=== PATIENT | female | born 1995 | race Caucasian/White ===

== ENCOUNTER 2016-11-19 12:11 | Emergency (ER) | payer MEDICAID, OTHER, SELFPAY ==
[2016-11-19 12:55] LABS: #Basophils 0.1 thou/uL (0.0-0.2); #Eosinphils 0.1 thou/uL (0.0-0.7); #Lymphocytes 2.7 thou/uL (1.20-3.40); #Monocytes 0.9 thou/uL (0.11-0.59); #Neutrophils 8.5 thou/uL (1.40-6.50); %Basophils 0.6 % (0.0-1.0); %Eosinophils 0.8 % (0.0-10.0); %Lymphocytes 22.3 % (21.0-51.0); %Monocytes 7.3 % (0.0-10.0); Hemoglobin 10.8 g/dL (12.0-16.0); Mean Corpuscular HGB CONC 34.2 g/dL (32.0-36.0); Mean Corpuscular Hemoglobin 30.2 pg (27.0-31.0); Mean Corpuscular Volume 88.2 fl (81.0-99.0); Mean Platelet Volume 7.4 fL (7.4-10.4); Platelet Count 282 thou/uL (130-400); RBC Distribution Width 11.6 % (11.5-14.5); Red Blood Cell (RBC) Count 3.58 mill/uL (4.20-5.40); White Blood Cell (WBC) Count 12.3 thou/uL (4.8-10.8)
[2016-11-19 13:10] LABS: ALT (SGPT) 16 U/L (0-55); AST (SGOT) 18 U/L (5-34); Albumin 3.5 g/dL (3.5-5.0); Alkaline Phosphatase 141 U/L (40-150); Anion Gap 17 mmol/L (10-20); BUN (Urea Nitrogen) 8 mg/dL (7.0-18.7); Bilirubin, Total 0.4 mg/dL (0.2-1.2); CK (CPK) 34 U/L (29-168); Calc. Creatinine Clearance 0 mL/min (70-130); Calcium 9.2 mg/dL (7.8-10.44); Carbon Dioxide 19 mmol/L (22-29); Chloride 104 mmol/L (98-107); Estimated GFR-MDRD Greater than 90; Globulin 3.2 g/dL (2.4-3.5); Glucose 83 mg/dL (70-105); Potassium 3.7 mmol/L (3.5-5.1); Protein, Total 6.7 g/dL (6.0-8.3); Sodium 136 mmol/L (136-145)
[2016-11-19 13:16] LABS: Bilirubin Negative (Negative); Blood, Urine Negative (Negative); Clarity Cloudy (Clear); Glucose, Urine (Dipstick) Negative (Negative); Leukocyte Trace (Negative); Nitrite Negative (Negative); Protein, Urine (Dipstick) Trace mg/dL (Neg-Trace); RBC/HPF 0-3 HPF (0-3); Urobilinogen 0.2 mg/dL (0.2-1.0); pH, Urine 8.5 (5.0-9.0)
[2016-11-19 13:16] LABS: CKMB 1.1 ng/mL (0-6.6); Troponin I Less than 0.010 ng/mL (< 0.028)
[2016-11-19 13:17] LABS: Bacteria/HPF 3+ HPF (None Seen); Crystals/HPF 3+ AMORPH PHOS HPF (Negative); Renal Epithelial 0-3 HPF (0-3); Transitional Epithelial 0-3 HPF (0-3); WBC/HPF 21-50 HPF (0-3); Yeast-All Forms 1+ HPF (None Seen)
[2016-11-19] MEDS ORDERED: Nitrofurantoin Monohyd/M-Cryst 100 MG CAP ONE (13:36)
[2016-11-19] MEDS ORDERED: Ciprofloxacin 500 MG TAB ONE (13:57)
--- NOTE | 2016-11-19 14:06 | ERRECORD ---
[facility] EMERGENCY RECORD HPI CHEST PAIN (12:50 LLDO) CHIEF COMPLAINT: Patient presents for evaluation of chest pain, ongoing, Denies automated implantable cardioverter-defibrillator event, Patient presents for evaluation of pt about 28 weeks and having no problems so far. this morning began having a burning substernal sensation up to about 3.5/10. started when she woke, about 1100 today. no n/v/d or sob or diaphoresis. no radiation. sorse with deep breath but a bit better with rubbing chest. pain extends some into epigastrum. never had this before. pain now about a 2/10. HISTORIAN: History provided by patient, History provided by patient's family. LOCATION: Symptoms are localized. QUALITY: Pain is dull in nature, described as aching, described as BURNING. SEVERITY: Maximum severity of symptoms mild, Currently symptoms are mild. TIME COURSE: Sudden onset of symptoms, Symptoms are improving, are constant. ASSOCIATED WITH: No associated symptoms, "tingling in legs" is only when she's been on her feet too long. EXACERBATED BY: Patient's condition exacerbated by nothing. RELIEVED BY: Patient's condition relieved by time. RISK FACTORS: No coronary artery disease risk factors, No thoracic aortic dissection risk factors, Pulmonary embolism risk factors, include . HEART SCORE: Patients history is Slightly Suspicious (0), Patients ECG is normal (0), Patients age is equal to or less than 45 (0), Patient has no risk factors known (0), Total 0. WELLS CRITERIA FOR PE: Total 0. ROS CONSTITUTIONAL: Historian reports fatigue. (13:22 LLDO) EYES: Negative eye review of systems, Historian denies eye pain, denies eye redness, denies eye discharge. (13:47 LLDO) ENT: Negative ears, nose, throat review of systems, Historian denies epistaxis, denies rhinorrhea, denies sinus pain, denies sore throat. (13:47 LLDO) CARDIOVASCULAR: Historian reports chest pain, no radiation, Historian denies diaphoresis, denies dyspnea on exertion. IN HPI. (13:22 LLDO) RESPIRATORY: Negative respiratory review of systems, Historian denies cough, denies cyanosis, denies shortness of breath, denies sputum, denies stridor, denies wheezing. (13:22 LLDO) GI: Negative gastrointestinal review of systems. (13:22 LLDO) GENITOURINARY FEMALE: Historian reports . (13:22 LLDO) MUSCULOSKELETAL: Negative musculoskeletal review of systems, Historian denies arthralgias, denies back pain, denies injury, denies &a-1R&a+25V*p+0X*j1623V*c202B*c15G*c2P*p-0X&a-25V&a+1R Name: Catherine Jaimes : 1995 F21 MedRec: [id number] AcctNum: [id number] Prepared: Caitie Nov 19, 2016 14:14 by Interface Page 1 of 4 pMD [facility] EMERGENCY RECORD myalgias, denies neck pain. (13:47 LLDO) SKIN: Negative skin review of systems, Historian denies cellulitis, denies rash, denies skin changes, denies skin lesions. (13:47 LLDO) NEUROLOGIC: Negative neurologic review of systems, Historian denies confusion, denies dizziness, denies focal weakness, denies mental status changes. (13:47 LLDO) HEMO/LYMPHATIC: Normal hematologic/lymphatic system review, Historian denies abnormal blood clotting, denies gum bleeding, denies petechiae. (13:47 LLDO) ALLERGIC/IMMUNOLOGIC: Normal allergy/immunologic system review, Historian denies eczema, denies environmental allergies, denies food allergies. (13:47 LLDO) PSYCHIATRIC: Negative psychiatric review of systems, Historian denies alcohol abuse, denies anxiety, denies depression, denies drug abuse, denies hallucinations. (13:47 LLDO) NOTES: All systems reviewed, negative except as described above. (13:22 LLDO) All systems reviewed, negative except as described above. (13:22 LLDO) All systems reviewed, negative except as described above. (13:31 LLDO) PAST MEDICAL HISTORY MEDICAL HISTORY: Flu vaccine not up to date, Tetanus not up to date, Pneumococcal vaccine not up to date, REOCCURING UTIS. (12:19 CJEF) FEMALE SURGICAL HISTORY: WISDOM TEETH. (12:19 CJEF) PSYCHIATRIC HISTORY: Psychiatric history includes, anxiety, depression, Psychiatric history includes previous emergency department psychiatric evaluations, Date of last emergency department evaluation: 01/08/16, Psychiatric history includes history of suicide attempts, by OVERDOSE. (12:19 CJEF) SOCIAL HISTORY: Patient drinks socially, Patient currently uses drugs, abuses marijuana, Daily drug use, Last used: 02/04/2016, Patient currently uses tobacco, smokes cigarettes, chews tobacco, daily, Patient smokes 1/2 packs per day. (12:19 CJEF) NOTES: Nursing records reviewed, Agree with nursing records, Medication list reviewed. (13:46 LLDO) KNOWN ALLERGIES Bactrim DS: Reaction: Nausea Sulfa (Sulfonamide Antibiotics) CURRENT MEDICATIONS (12:17 CJEF) PRENATALS VITAL SIGNS VITAL SIGNS: BP: 104/71, Pulse: 106, Resp: 18, O2 sat: 99 on Room Air, Time: 11/19/2016 12:15. (12:15 CJEF) Temp: 98.3 (Tympanic), Pain: 2, Time: 11/19/2016 12:22. (12:22 CJEF) BP: 104/71, Pulse: 104, Resp: 13, Pain: 2, O2 sat: 99 on Room Air, Time: &a-1R&a+25V*p+0X*c4010F*c202B*c15G*c2P*p-0X&a-25V&a+1R Name: Catherine Jaimes : 1995 F21 MedRec: [id number] AcctNum: [id number] Prepared: Caitie Nov 19, 2016 14:14 by Interface Page 2 of 4 pMD [facility] EMERGENCY RECORD 11/19/2016 12:26. (12:26 JPER) BP: 104/69, Pulse: 91, Resp: 17, Pain: 2, O2 sat: 98 on Room Air, Time: 11/19/2016 13:17. (13:17 CJEF) BP: 120/74, Pulse: 101, Resp: 15, Temp: 98.4 (Oral), Pain: 2, O2 sat: 100 on Room Air, Time: 11/19/2016 13:59. (13:59 CJEF) PHYSICAL EXAM CONSTITUTIONAL: Vital Signs Reviewed, Patient afebrile, Pulse normal, Blood pressure normal bilaterally, Respiratory rate normal, Patient appears non toxic, Patient appears, in mild pain distress, Patient alert and oriented to person, place and time, Nursing notes reviewed. (13:44 LLDO) HEAD: Head exam normal, Head exam included findings of head atraumatic, normocephalic. (13:47 LLDO) EYES: Eye exam normal, Eye exam included findings of eyelids normal to inspection, Pupils equally round and reactive to light, Extraocular muscles intact. (13:47 LLDO) ENT: ENT exam normal, Ear exam normal, Nose exam normal. (13:47 LLDO) NECK: Neck exam normal, Neck exam included findings of normal range of motion, Trachea midline, no meningeal signs, no tenderness. (13:47 LLDO) RESPIRATORY CHEST: Respiratory exam included findings of, Breath sounds clear, Chest exam included findings of chest movement symmetrical, Chest expansion equal, Tenderness, mild, to the sternum, Palpation of chest reproduces symptoms. (13:44 LLDO) CARDIOVASCULAR: Cardiovascular assessment normal, Cardiovascular exam included findings of heart rate regular rate and rhythm, Heart sounds normal. (13:47 LLDO) ABDOMEN FEMALE: Abdominal exam included findings of abdomen tender, to the epigastric region, mild intensity, Bowel sounds normal, fht 156. uterus size appropriate for dates. (13:44 LLDO) BACK: Back exam normal, Back exam included findings of normal inspection, range of motion normal. (13:47 LLDO) UPPER EXTREMITY: Upper extremity exam normal, Upper extremity exam included findings of inspection normal, Range of motion normal. (13:47 LLDO) LOWER EXTREMITY: Lower extremity exam normal, Lower extremity exam included findings of inspection normal, Range of motion normal. (13:47 LLDO) NEURO: Neuro exam normal, Neuro exam findings include patient oriented to person, place and time, Speech normal, [place] coma scale 15. (13:47 LLDO) SKIN: Skin exam normal, Skin exam included findings of skin warm, dry, and normal in color, no rash. (13:47 LLDO) PSYCHIATRIC: Psychiatric exam normal, Psychiatric exam included findings of patient oriented to person place and time, Normal affect. (13:47 LLDO) &a-1R&a+25V*p+0X*w0277F*c202B*c15G*c2P*p-0X&a-25V&a+1R Name: Catherine Jaimes : 1995 F21 MedRec: [id number] AcctNum: [id number] Prepared: Caitie Nov 19, 2016 14:14 by Interface Page 3 of 4 pMD [facility] EMERGENCY RECORD MEDICATION ADMINISTRATION SUMMARY Drug Name: Macrobid, Dose Ordered: 100 mg, Route: Oral, Status: Canceled, Time: 13:53 11/19/2016, Drug Name: Cipro tablet, Dose Ordered: 500 mg, Route: Oral, Status: Given, Time: 13:58 11/19/2016, Detailed record available in Medication Service section. PROBLEM LIST No recorded problems DIAGNOSIS (13:58 LLDO) FINAL: PRIMARY: Esophageal Reflux, ADDITIONAL: UTI SITE NOT SPECIFIED. PRESCRIPTION (13:59 LLDO) Cipro tablet: TABLET : 500 mg : ORAL : Quantity: 1 Unit: tab(s) Route: ORAL Schedule: 2 times a day Dispense: 20 Unit: tab(s) May substitute. Refills: No Refills . NOTES: No Refills. DISPOSITION PATIENT: Disposition Type: Discharge, Disposition: *Discharge Home. (13:58 LLDO) Patient left the department. (14:06 [facility]) [place]: CRISSY=VANESSA Parikh, Poppy JPER=VANESSA Gross, Elif LLDO=MD Nato, Kam &a-1R&a+25V*p+0X*h5696R*c202B*c15G*c2P*p-0X&a-25V&a+1R Name: Catherine Jaimes : 1995 F21 MedRec: [id number] AcctNum: [id number] Prepared: Caitie Nov 19, 2016 14:14 by Interface Page 4 of 4 pMD MTDD
--- NOTE | 2016-11-19 14:09 | PICIS ---
[facility] EMERGENCY RECORD TRIAGE (12:17 CJEF) TRIAGE NOTES: PT REPORTS CP THAT STARTED WHEN SHE WOKE UP AT APPROX 11 THIS MORNING. PT STATES THAT SHE IS 30 WEEKS AND THAT HER DOCTOR TOLD HER TO COME TO ER OF SHE HAS ANY CHEST PAIN. PT REPORTS TINGLING IN HER BILATERAL LEGS. PT REPORTS HX OF ANXIETY. (12:17 CJEF) PATIENT: NAME: Catheirne Jaimes, AGE: 21, GENDER: female, : Mon 1995, TIME OF GREET: Sun Nov 19, 2016 12:12, PREFERRED LANGUAGE: Indonesian, ETHNICITY: Not or , ECODE BILLING MAP: [facility] ER, SSN: [id number], Zip Code: [address], KG WEIGHT: 57.15, PHONE: , , , PERSON ID: [id number], PCP: , Clinic. (12:17 CJEF) COMPLAINT: HIGH RISK COMPLAINT: CHEST PAIN. (12:17 CJEF) ADMISSION: URGENCY: 2 Emergent, ADMISSION SOURCE: Home, TRANSPORT: Walk-in, BED: ED -01. (12:17 CJEF) ASSESSMENT: Assessment: CP AND TINGLING LEGS. (12:19 CJEF) PAIN: Patient complains of pain described as, Location CHEST. (12:19 CJEF) IMMUNIZATIONS: Flu vaccine not up to date, Tetanus not up to date, Pneumococcal vaccine not up to date. (12:19 CJEF) SIRS SCORING: Heart Rate 55-109 (0), Temp range 96.8-101.1 (0), respiratory rate 12-24 (0), Mental Status altered: no (0), Infection or Suspected Infection: No. (12:19 CJEF) TRIAGE SCREENING: Patient denies suicidal ideation, Patient denies presence of domestic violence. (12:19 CJEF) LMP: Last menstrual period: 05/03/2016, Estimated conception 05/17/2016, Estimated due date 02/07/2017, Estimated age 28 weeks, 4 days, , P: 0, AB: 1. (12:19 CJEF) PROVIDERS: TRIAGE NURSE: Poppy Parikh RN. (12:17 CJEF) VITAL SIGNS: BP 104/71, Pulse 106, Resp 18, O2 Sat 99, on Room Air, Time 11/19/2016 12:15. (12:15 CJEF) PREVIOUS VISIT ALLERGIES: Sulfa (Sulfonamide Antibiotics). (12:17 CJEF) Sulfa (Sulfonamide Antibiotics). (12:19 CJEF) KNOWN ALLERGIES Bactrim DS: Reaction: Nausea Sulfa (Sulfonamide Antibiotics) CURRENT MEDICATIONS (12:17 CJEF) PRENATALS VITAL SIGNS VITAL SIGNS: BP: 104/71, Pulse: 106, Resp: 18, O2 sat: 99 on Room Air, Time: 11/19/2016 12:15. (12:15 CJEF) Temp: 98.3 (Tympanic), Pain: 2, Time: 11/19/2016 12:22. (12:22 CJEF) BP: 104/71, Pulse: 104, Resp: 13, Pain: 2, O2 sat: 99 on Room Air, Time: 11/19/2016 12:26. (12:26 JPER) &a-1R&a+25V*p+0X*s3694F*c202B*c15G*c2P*p-0X&a-25V&a+1R Name: Catherine Jaimes : 1995 F21 MedRec: [id number] AcctNum: [id number] Prepared: Caitie Nov 19, 2016 14:19 by Interface Page 1 of 12 pMD [facility] EMERGENCY RECORD BP: 104/69, Pulse: 91, Resp: 17, Pain: 2, O2 sat: 98 on Room Air, Time: 11/19/2016 13:17. (13:17 CJEF) BP: 120/74, Pulse: 101, Resp: 15, Temp: 98.4 (Oral), Pain: 2, O2 sat: 100 on Room Air, Time: 11/19/2016 13:59. (13:59 CJEF) NURSING ASSESSMENT: CARDIOVASCULAR (12:19 CJEF) CONSTITUTIONAL: Complex assessment performed, Patient arrives ambulatory, Gait steady, History obtained from patient, Patient appears, anxious, Patient cooperative, Patient alert, Oriented to person, place and time, Skin warm, Skin dry, Skin normal in color, Mucous membranes pink, Mucous membranes moist, Patient is well-groomed, PT REPORTS CP THAT STARTED WHEN SHE WOKE UP AT APPROX 11 THIS MORNING. PT STATES THAT SHE IS 30 WEEKS AND THAT HER DOCTOR TOLD HER TO COME TO ER OF SHE HAS ANY CHEST PAIN. PT REPORTS TINGLING IN HER BILATERAL LEGS. PT REPORTS HX OF ANXIETY. PAIN: aching pain, to the left chest. CARDIOVASCULAR: Cardiovascular assessment findings include heart rate, tachycardic, Heart rhythm normal sinus, Heart sounds normal, no associated dyspnea, no associated dizziness, no associated palpitations. RESPIRATORY/CHEST: Breath sounds clear, Respiratory assessment findings include respiratory effort easy, Respirations regular, Conversing normally, Neck and chest exam findings include trachea midline, Chest expansion equal, Chest movement symmetrical, no signs of distress, no associated cough noted, no associated fever. NOTES: Patient tolerated procedure well. SAFETY: Side rails up, Cart/Stretcher in lowest position, Family at bedside, Call light within reach, Hospital ID band on. NURSING ASSESSMENT: FALL RISK (12:20 CJEF) FALL RISK: Total score 0, No risk for fall. HENDRICH II FALL RISK: Able to rise in a single movement; no loss of balance with steps(0), Total score 0, Score less than 5. Patient not high risk for falls. NURSING ASSESSMENT: SKIN (12:20 CJEF) SKIN: Skin assessment findings include skin warm, Skin dry, Skin normal in color. MATTI SCALE: (4) Sensory perception has no impairment, (4) Skin is rarely moist, (4) Patient walks frequently, (4) No mobility limitations, (3) Adequate nutrition, (3) Patient has no apparent problem moving, Matti Risk Total: 22. NOTES: Patient tolerated procedure well. SAFETY: Side rails up, Cart/Stretcher in lowest position, Family at bedside, Call light within reach, Hospital ID band on. NURSING PROCEDURE: CAMP HEAD COUNSELOR (12:17 CJEF) PATIENT IDENTIFIER: Patient actively involved in identification process, Patient's identity verified by patient stating name, &a-1R&a+25V*p+0X*y2248L*c202B*c15G*c2P*p-0X&a-25V&a+1R Name: Catherine Jaimes : 1995 F21 MedRec: [id number] AcctNum: [id number] Prepared: Caitie Nov 19, 2016 14:19 by Interface Page 2 of 12 pMD [facility] EMERGENCY RECORD Patient's identity verified by patient stating date. CAMP HEAD COUNSELOR: Cardiac monitoring indicated for complaint of chest pain, Patient placed on shelter monitor, Heart rate: 106, showing sinus tachycardia, Patient placed on non-invasive blood pressure monitor, Patient placed on continuous pulse oximetry, Adult/pediatric oxisensor applied. FOLLOW-UP: After procedure, alarms set and on, After procedure, patient tolerating monitoring. NOTES: Patient tolerated procedure well. SAFETY: Side rails up, Cart/Stretcher in lowest position, Family at bedside, Call light within reach, Hospital ID band on. NURSING PROCEDURE: DISCHARGE NOTE (14:05 CJEF) DISCHARGE: Patient discharged to home, ambulating without assistance, driving self, accompanied by friend, Summary of Care printed/ provided, Patient requested and was provided an electronic copy of Discharge Instructions, Transition record given to patient, Discharge instructions given to patient, Simple or moderate discharge teaching performed, Prescriptions given and instructions on side effects given, Medication reconciliation form given, Above person(s) verbalized understanding of discharge instructions and follow-up care, Patient treated and evaluated by physician. BELONGINGS: Belongings remain with patient. NOTES: Patient tolerated procedure well. SAFETY: Side rails up, Cart/Stretcher in lowest position, Family at bedside, Call light within reach, Hospital ID band on. NURSING PROCEDURE: EKG CHART PATIENT IDENTIFIER: Patient actively involved in identification process, Patient's identity verified by patient stating name, Patient's identity verified by patient stating date. (12:22 CJEF) Patient's identity verified by patient stating name, Patient's identity verified by hospital ID bracelet. (12:39 JPER) EKG: EKG indicated for complaint of chest pain, 12 lead EKG performed on the left chest, done by ELIF MENDEZ, first EKG. (12:22 CJEF) EKG indicated for complaint of chest pain, 12 lead EKG performed on the left chest, done by SUNNY MENDEZ, first EKG. (12:39 JPER) FOLLOW-UP: After procedure, EKG for interpretation given to Dr. DUTTON. (12:22 CJEF) After procedure, EKG for interpretation given to Dr. DUTTON. (12:39 JPER) NOTES: Patient tolerated procedure well. (12:22 CJEF) Emotional support needed and given. (12:39 JPER) SAFETY: Side rails up, Cart/Stretcher in lowest position, Family at bedside, Call light within reach, Hospital ID band on. (12:22 CJEF) NURSING PROCEDURE: HEART TONES (12:38 JPER) PATIENT IDENTIFIER: Patient's identity verified by patient stating name, Patient's identity verified by hospital ID murphy. &a-1R&a+25V*p+0X*s1155Y*c202B*c15G*c2P*p-0X&a-25V&a+1R Name: Catherine Jaimes : 1995 F21 MedRec: [id number] AcctNum: [id number] Prepared: Caitie Nov 19, 2016 14:19 by Interface Page 3 of 12 pMD [facility] EMERGENCY RECORD HEART TONES: heart toned obtained with doppler, by SUNNY MENDEZ, heart rate 156. FOLLOW-UP: After procedure, results given to Dr. DUTTON. NOTES: Emotional support needed and given. NURSING PROCEDURE: IV PATIENT IDENITIFIER: Patient actively involved in identification process, Patient's identity verified by patient stating name, Patient's identity verified by patient stating date. (12:43 CJEF) IV SITE 1: IV therapy indicated for hydration, IV therapy indicated for medication administration, IV established, to the left antecubital, using an 18 gauge catheter, in one attempt, IV site prepped with CHLORAPREP, Saline lock established, Flushed with normal saline (mls): 10, Labs drawn at time of placement, labeled in the presence of the patient and sent to lab. (12:43 CJEF) FOLLOW-UP SITE 1: After procedure, sterile transparent dressing applied. (12:43 CJEF) After procedure, 2x2 dressing applied, IV discontinued, due to patient being discharged, catheter intact. (14:00 CJEF) NOTES: Patient tolerated procedure well. (12:43 CJEF) SAFETY: Side rails up, Cart/Stretcher in lowest position, Family at bedside, Call light within reach, Hospital ID band on. (12:43 CJEF) NURSING PROCEDURE: NURSE NOTES NURSES NOTES: Patient in no apparent distress, Patient resting quietly, Notes: PT RESTING IN BED QUIETLY WITH FRIEND AT BEDSIDE. NO DISTRESS NOTED. (13:17 CJEF) Patient in no apparent distress, Patient resting quietly, Notes: PT WAS ABOUT TO BE ADMINISTERD ORDERED MACROBID, THOUGH SHE NOW REPORTS THAT SHE IS ALLERGIC TO MACROBID,. (13:39 CJEF) NURSING PROCEDURE: URINE COLLECTION (12:53 CJ) PATIENT IDENTIFIER: Patient actively involved in identification process, Patient's identity verified by patient stating name, Patient's identity verified by patient stating date. URINE COLLECTION FEMALE: Urine collected by mid-stream clean catch, urine yellow in color, and cloudy. NOTES: Patient tolerated procedure well. SAFETY: Side rails up, Cart/Stretcher in lowest position, Family at bedside, Call light within reach, Hospital ID band on. ORDER DETAILS Order Name: B type Natriuretic Peptide, Status: Active, Time: 12:30 11/19/2016, User: TIFFANY, - Ordered for: MD Dutton Lloyd, - Entered by: MD Dutton Lloyd - Caitie Nov 19, 2016 12:30, - Quantity: 1, &a-1R&a+25V*p+0X*s8973B*c202B*c15G*c2P*p-0X&a-25V&a+1R Name: Catherine Jaimes : 1995 F21 MedRec: [id number] AcctNum: [id number] Prepared: Caitie Nov 19, 2016 14:19 by Interface Page 4 of 12 [facility] EMERGENCY RECORD Order Name: CAMP HEAD COUNSELOR ED, Status: Done, Time: 12:39 11/19/2016, User: JESSICA, - Ordered for: MD Dutton Lloyd, - Entered by: MD Dutton Lloyd - Caitie Nov 19, 2016 12:30, - Quantity: 1, Order Name: Cardiac Profile w/CKMB & Troponin - I, Status: Active, Time: 12:30 11/19/2016, User: TIFFANY, - Ordered for: MD Dutton Lloyd, - Entered by: MD Dutton Lloyd - Caitie Nov 19, 2016 12:30, - Quantity: 1, Order Name: CBC with Differential, Status: Active, Time: 12:30 11/19/2016, User: TIFFANY, - Ordered for: MD Dutton Lloyd, - Entered by: MD Dutton Lloyd - Sun Nov 19, 2016 12:30, - Quantity: 1, Order Name: CK (CPK), Status: Active, Time: 12:30 11/19/2016, User: LLDO, - Ordered for: MD Dutton Lloyd, - Entered by: MD Dutton Lloyd - Sun Nov 19, 2016 12:30, - Quantity: 1, Order Name: Comprehensive Metabolic Panel, Status: Active, Time: 12:30 11/19/2016, User: LLDO, - Ordered for: MD Dutton Lloyd, - Entered by: MD Dutton Lloyd - Sun Nov 19, 2016 12:30, - Quantity: 1, Order Name: Culture, Urine, Status: Active, Time: 12:31 11/19/2016, User: LLDO, - Ordered for: MD Dutton Lloyd, - Entered by: MD Dutton Lloyd - Sun Nov 19, 2016 12:31, - Quantity: 1, Order Name: EKG 12 Lead in Emergency Room, Status: Active, Time: 12:30 11/19/2016, User: LLDO, - Ordered for: MD Dutton Lloyd, - Entered by: MD Dutton Lloyd - Sun Nov 19, 2016 12:30, - Quantity: 1, Order Name: ERRT Oxygen Usage ER, Status: Active, Time: 12:30 11/19/2016, User: LLDO, - Ordered for: MD Dutton Lloyd, - Entered by: MD Dutton Lloyd - Sun Nov 19, 2016 12:30, - Quantity: 1, Order Name: ERRT Pulse Oximeter ER, Status: Active, Time: 12:30 11/19/2016, User: LLDO, - Ordered for: MD Dutton Lloyd, - Entered by: MD Dutton Lloyd - Sun Nov 19, 2016 12:30, - Quantity: 1, Order Name: HEART TONES ED, Status: Done, Time: 12:40 11/19/2016, User: JPYOKASTA, - Ordered for: MD Dutton Lloyd, - Entered by: MD Dutton Lloyd - Sun Nov 19, 2016 12:33, - Quantity: 1, &a-1R&a+25V*p+0X*c3801O*c202B*c15G*c2P*p-0X&a-25V&a+1R Name: Catherine Jaimes : 1995 F21 MedRec: [id number] AcctNum: [id number] Prepared: Caitie Nov 19, 2016 14:19 by Interface Page 5 of 12 pMD [facility] EMERGENCY RECORD Order Name: SALINE LOCK, Status: Done, Time: 12:41 11/19/2016, User: JPER, - Ordered for: MD Dutton Lloyd, - Entered by: MD Dutton Lloyd - Caitie Nov 19, 2016 12:30, - Quantity: 1, Order Name: Urinalysis with Microscopic, Status: Active, Time: 12:31 11/19/2016, User: TIFFANY, - Ordered for: MD Dutton Lloyd, - Entered by: MD Dutton Lloyd - Caitie Nov 19, 2016 12:31, - Quantity: 1. MEDICATION ADMINISTRATION SUMMARY Drug Name: Macrobid, Dose Ordered: 100 mg, Route: Oral, Status: Canceled, Time: 13:53 11/19/2016, Drug Name: Cipro tablet, Dose Ordered: 500 mg, Route: Oral, Status: Given, Time: 13:58 11/19/2016, Detailed record available in Medication Service section. MEDICATION SERVICE Cipro tablet: Order: Cipro tablet (ciprofloxacin HCl) - Dose: 500 mg : Oral Schedule: Now Ordered by: Kam Dutton MD Entered by: MD Caitie Fried Nov 19, 2016 13:53 Documented as given by: Poppy Parikh RN At[place] Nov 19, 2016 13:58 Patient, Medication, Dose, Route and Time verified prior to administration. Amount given: 500MG, Site: Medication administered P.O., Mouth check performed after administration of medication, Patient appears Awake and alert- acceptable, Correct patient, time, route, dose and medication confirmed prior to administration, Patient advised of actions and side-effects prior to administration, Allergies confirmed and medications reviewed prior to administration, Patient tolerated procedure well, Patient in position of comfort, Side rails up, Cart in lowest position, Family at bedside. (CANCELED) Macrobid: Order: Macrobid (nitrofurantoin/nitrofurantoin macrocrystal) - Dose: 100 mg : Oral Schedule: Now Ordered by: Kam Dutton MD Entered by: MD Caitie Fried Nov 19, 2016 13:21 , Held by: VANESSA Garcia Nov 19, 2016 13:38 Reason: Patient refused:PT NOW REPORTS THAT SHE IS ALLERGIC TO MACROBID. Canceled by: Kam Dutton MD. Caitie Nov 19, 2016 13:53 Cancel reason: Change in medication plan:pt remembered she was allergic to macrobid. HPI CHEST PAIN (12:50 LLDO) CHIEF COMPLAINT: Patient presents for evaluation of chest &a-1R&a+25V*p+0X*g6772B*c202B*c15G*c2P*p-0X&a-25V&a+1R Name: Catherine Jaimes : 1995 F21 MedRec: [id number] AcctNum: [id number] Prepared: Caitie Nov 19, 2016 14:19 by Interface Page 6 of 12 pMD [facility] EMERGENCY RECORD pain, ongoing, Denies automated implantable cardioverter-defibrillator event, Patient presents for evaluation of pt about 28 weeks and having no problems so far. this morning began having a burning substernal sensation up to about 3.5/10. started when she woke, about 1100 today. no n/v/d or sob or diaphoresis. no radiation. sorse with deep breath but a bit better with rubbing chest. pain extends some into epigastrum. never had this before. pain now about a 2/10. HISTORIAN: History provided by patient, History provided by patient's family. LOCATION: Symptoms are localized. QUALITY: Pain is dull in nature, described as aching, described as BURNING. SEVERITY: Maximum severity of symptoms mild, Currently symptoms are mild. TIME COURSE: Sudden onset of symptoms, Symptoms are improving, are constant. ASSOCIATED WITH: No associated symptoms, "tingling in legs" is only when she's been on her feet too long. EXACERBATED BY: Patient's condition exacerbated by nothing. RELIEVED BY: Patient's condition relieved by time. RISK FACTORS: No coronary artery disease risk factors, No thoracic aortic dissection risk factors, Pulmonary embolism risk factors, include . HEART SCORE: Patients history is Slightly Suspicious (0), Patients ECG is normal (0), Patients age is equal to or less than 45 (0), Patient has no risk factors known (0), Total 0. WELLS CRITERIA FOR PE: Total 0. ROS CONSTITUTIONAL: Historian reports fatigue. (13:22 LLDO) EYES: Negative eye review of systems, Historian denies eye pain, denies eye redness, denies eye discharge. (13:47 LLDO) ENT: Negative ears, nose, throat review of systems, Historian denies epistaxis, denies rhinorrhea, denies sinus pain, denies sore throat. (13:47 LLDO) CARDIOVASCULAR: Historian reports chest pain, no radiation, Historian denies diaphoresis, denies dyspnea on exertion. IN HPI. (13:22 LLDO) RESPIRATORY: Negative respiratory review of systems, Historian denies cough, denies cyanosis, denies shortness of breath, denies sputum, denies stridor, denies wheezing. (13:22 LLDO) GI: Negative gastrointestinal review of systems. (13:22 LLDO) GENITOURINARY FEMALE: Historian reports . (13:22 LLDO) MUSCULOSKELETAL: Negative musculoskeletal review of systems, Historian denies arthralgias, denies back pain, denies injury, denies myalgias, denies neck pain. (13:47 LLDO) SKIN: Negative skin review of systems, Historian denies &a-1R&a+25V*p+0X*n1902L*c202B*c15G*c2P*p-0X&a-25V&a+1R Name: Catherine Jaimes : 1995 F21 MedRec: [id number] AcctNum: [id number] Prepared: Caitie Nov 19, 2016 14:19 by Interface Page 7 of 12 pMD [facility] EMERGENCY RECORD cellulitis, denies rash, denies skin changes, denies skin lesions. (13:47 LLDO) NEUROLOGIC: Negative neurologic review of systems, Historian denies confusion, denies dizziness, denies focal weakness, denies mental status changes. (13:47 LLDO) HEMO/LYMPHATIC: Normal hematologic/lymphatic system review, Historian denies abnormal blood clotting, denies gum bleeding, denies petechiae. (13:47 LLDO) ALLERGIC/IMMUNOLOGIC: Normal allergy/immunologic system review, Historian denies eczema, denies environmental allergies, denies food allergies. (13:47 LLDO) PSYCHIATRIC: Negative psychiatric review of systems, Historian denies alcohol abuse, denies anxiety, denies depression, denies drug abuse, denies hallucinations. (13:47 LLDO) NOTES: All systems reviewed, negative except as described above. (13:22 LLDO) All systems reviewed, negative except as described above. (13:22 LLDO) All systems reviewed, negative except as described above. (13:31 LLDO) PAST MEDICAL HISTORY MEDICAL HISTORY: Flu vaccine not up to date, Tetanus not up to date, Pneumococcal vaccine not up to date, REOCCURING UTIS. (12:19 CJEF) FEMALE SURGICAL HISTORY: WISDOM TEETH. (12:19 CJEF) PSYCHIATRIC HISTORY: Psychiatric history includes, anxiety, depression, Psychiatric history includes previous emergency department psychiatric evaluations, Date of last emergency department evaluation: 01/08/16, Psychiatric history includes history of suicide attempts, by OVERDOSE. (12:19 CJEF) SOCIAL HISTORY: Patient drinks socially, Patient currently uses drugs, abuses marijuana, Daily drug use, Last used: 02/04/2016, Patient currently uses tobacco, smokes cigarettes, chews tobacco, daily, Patient smokes 1/2 packs per day. (12:19 CJEF) NOTES: Nursing records reviewed, Agree with nursing records, Medication list reviewed. (13:46 LLDO) PHYSICAL EXAM CONSTITUTIONAL: Vital Signs Reviewed, Patient afebrile, Pulse normal, Blood pressure normal bilaterally, Respiratory rate normal, Patient appears non toxic, Patient appears, in mild pain distress, Patient alert and oriented to person, place and time, Nursing notes reviewed. (13:44 LLDO) HEAD: Head exam normal, Head exam included findings of head atraumatic, normocephalic. (13:47 LLDO) EYES: Eye exam normal, Eye exam included findings of eyelids normal to inspection, Pupils equally round and reactive to light, Extraocular muscles intact. (13:47 LLDO) ENT: ENT exam normal, Ear exam normal, Nose exam normal. (13:47 LLDO) NECK: Neck exam normal, Neck exam included findings of normal &a-1R&a+25V*p+0X*s2616C*c202B*c15G*c2P*p-0X&a-25V&a+1R Name: Catherine Jaimes : 1995 F21 MedRec: [id number] AcctNum: [id number] Prepared: Caitie Nov 19, 2016 14:19 by Interface Page 8 of 12 pMD [facility] EMERGENCY RECORD range of motion, Trachea midline, no meningeal signs, no tenderness. (13:47 LLDO) RESPIRATORY CHEST: Respiratory exam included findings of, Breath sounds clear, Chest exam included findings of chest movement symmetrical, Chest expansion equal, Tenderness, mild, to the sternum, Palpation of chest reproduces symptoms. (13:44 LLDO) CARDIOVASCULAR: Cardiovascular assessment normal, Cardiovascular exam included findings of heart rate regular rate and rhythm, Heart sounds normal. (13:47 LLDO) ABDOMEN FEMALE: Abdominal exam included findings of abdomen tender, to the epigastric region, mild intensity, Bowel sounds normal, fht 156. uterus size appropriate for dates. (13:44 LLDO) BACK: Back exam normal, Back exam included findings of normal inspection, range of motion normal. (13:47 LLDO) UPPER EXTREMITY: Upper extremity exam normal, Upper extremity exam included findings of inspection normal, Range of motion normal. (13:47 LLDO) LOWER EXTREMITY: Lower extremity exam normal, Lower extremity exam included findings of inspection normal, Range of motion normal. (13:47 LLDO) NEURO: Neuro exam normal, Neuro exam findings include patient oriented to person, place and time, Speech normal, Jay coma scale 15. (13:47 LLDO) SKIN: Skin exam normal, Skin exam included findings of skin warm, dry, and normal in color, no rash. (13:47 LLDO) PSYCHIATRIC: Psychiatric exam normal, Psychiatric exam included findings of patient oriented to person place and time, Normal affect. (13:47 LLDO) EVENTS TRANSFER: Triage to Emergency Main ED -01. (Caitie Nov 19, 2016 12:17 CJEF) Removed from Emergency Main ED -01. (14:06 CJEF) PROBLEM LIST No recorded problems DIAGNOSIS (13:58 LLDO) FINAL: PRIMARY: Esophageal Reflux, ADDITIONAL: UTI SITE NOT SPECIFIED. DISPOSITION PATIENT: Disposition Type: Discharge, Disposition: *Discharge Home. (13:58 LLDO) Patient left the department. (14:06 CJ) INSTRUCTION (14:00 LLDO) DISCHARGE: ESOPHAGEAL REFLUX (ADULT), UTI CYSTITIS FEMALE ADULT. &a-1R&a+25V*p+0X*n4751J*c202B*c15G*c2P*p-0X&a-25V&a+1R Name: Catherine Jaimes : 1995 F21 MedRec: [id number] AcctNum: [id number] Prepared: Caitie Nov 19, 2016 14:19 by Interface Page 9 of 12 pMD [facility] EMERGENCY RECORD FOLLOWUP: , Clinic, Clinic, [address] [address], , Follow up with Primary Care Physician as scheduled. SPECIAL: Follow-up with your OB doctor. PRESCRIPTION (13:59 LLDO) Cipro tablet: TABLET : 500 mg : ORAL : Quantity: 1 Unit: tab(s) Route: ORAL Schedule: 2 times a day Dispense: 20 Unit: tab(s) May substitute. Refills: No Refills . NOTES: No Refills. IMAGING *DISCHARGE INSTRUCTIONS RECEIPT: Image captured from scanner. (14:06 [facility]) Page 2 added. Image captured from scanner. (14:06 CJEF) *SUPPLY CHARGE SHEET: Image captured from scanner. (14:06 CJEF) *EKG: Image captured from scanner. (14:07 EF) ADMIN (14:00 DO) DIGITAL SIGNATURE: MD Dutton Lloyd. RESULTS (13:21 CJEF) LABORATORY: Urinalysis with Microscopic Collection DT: Caitie Nov 19, 2016 13:16, Color Yellow , Range (Yellow), Clarity Cloudy , Range (Clear), Specific Clay, Urine 1.020 , Range (1.005-1.030), pH, Urine 8.5 , Range (5.0-9.0), *Leukocyte Trace - H , Range (Negative), Nitrite Negative , Range (Negative), Protein, Urine (Dipstick) Trace mg/dL, Range (Neg-Trace), Glucose, Urine (Dipstick) Negative mg/dL, Range (Negative), Ketone, Urine Negative mg/dL, Range (Negative), Urobilinogen 0.2 mg/dL, Range (0.2-1.0), Bilirubin Negative , Range (Negative), Blood, Urine Negative , Range (Negative), RBC/HPF 0-3 HPF, Range (0-3), *WBC/HPF 21-50 - H HPF, Range (0-3), *Squamous Epithelial 11-20 - H HPF, Range (0-3), Transitional Epithelial 0-3 HPF, Range (0-3), Renal Epithelial 0-3 HPF, Range (0-3), *Bacteria/HPF 3+ - H HPF, Range (None Seen), *Yeast-All Forms 1+ - H HPF, Range (None Seen). B type Natriuretic Peptide Collection DT: Atkinson Nov 19, 2016 12:48, B type Natriuretic Peptide Less than 10.0 pg/mL, Range (0-100). Cardiac Profile w/CKMB & TropI Collection DT: Atkinson Nov 19, 2016 12:48, CKMB 1.1 ng/mL, Range (0-6.6), Troponin I Less than 0.010 ng/mL, Range (< 0.028), Reference Range &a-1R&a+25V*p+0X*a9813G*c202B*c15G*c2P*p-0X&a-25V&a+1R Name: Catherine Jaimes : 1995 F21 MedRec: [id number] AcctNum: [id number] Prepared: SunNov 19, 2016 14:19 by Interface Page 10 of 12 pMD [facility] EMERGENCY RECORD , 0.00 - 0.028 ng/mL Negative 0.029 - 0.29 ng/mL , Indeterminate Greater or Equal to 0.3 ng/mL Strongly suggests NE , . CK (CPK) Collection DT: Atkinson Nov 19, 2016 12:48, CK (CPK) 34 U/L, Range (29-168). Comprehensive Metabolic Panel Collection DT: Atkinson Nov 19, 2016 12:48, Sodium 136 mmol/L, Range (136-145), Potassium 3.7 mmol/L, Range (3.5-5.1), Chloride 104 mmol/L, Range (98-107), *Carbon Dioxide 19 - L mmol/L, Range (22-29), Anion Gap 17 mmol/L, Range (10-20), BUN (Urea Nitrogen) 8 mg/dL, Range (7.0-18.7), *Creatinine 0.50 - L mg/dL, Range (0.6-1.1), Estimated GFR-MDRD Greater than 90 , Reference Range for Estimated GFR: Greater than 90, mL/min/1.73 m2 NOTE: The MDRD equation has not been validated for use, with the elderly (over 70 years of age), women, patients with, serious comorbid condition or persons with extremes of body size, muscle, mass, or nutritional status. , Glucose 83 mg/dL, Range (70-105), Calcium 9.2 mg/dL, Range (7.8-10.44), Bilirubin, Total 0.4 mg/dL, Range (0.2-1.2), Protein, Total 6.7 g/dL, Range (6.0-8.3), NOTE: Plasma values are generally 0.3 to 0.5 g/dL higher than serum values, due to the presence of fibrinogen. , Albumin 3.5 g/dL, Range (3.5-5.0), Globulin 3.2 g/dL, Range (2.4-3.5), *Alb/Glob Ratio 1.1 - L g/dL, Range (1.2-2.2), Alkaline Phosphatase 141 U/L, Range (40-150), AST (SGOT) 18 U/L, Range (5-34), ALT (SGPT) 16 U/L, Range (0-55). CBC with Differential Collection DT: Caitie Nov 19, 2016 12:48, *White Blood Cell (WBC) Count 12.3 - H thou/uL, Range (4.8-10.8), *Red Blood Cell (RBC) Count 3.58 - L mill/uL, Range (4.20-5.40), *Hemoglobin 10.8 - L g/dL, Range (12.0-16.0), *Hematocrit 31.6 - L %, Range (36.0-47.0), Mean Corpuscular Volume 88.2 fl, Range (81.0-99.0), Mean Corpuscular Hemoglobin 30.2 pg, Range (27.0-31.0), Mean Corpuscular HGB CONC 34.2 g/dL, Range (32.0-36.0), RBC Distribution Width 11.6 %, Range (11.5-14.5), Platelet Count 282 thou/uL, Range (130-400), Mean Platelet Volume 7.4 fL, Range (7.4-10.4), %Neutrophils 69.0 %, Range (42.0-75.0), &a-1R&a+25V*p+0X*w9788R*c202B*c15G*c2P*p-0X&a-25V&a+1R Name: Catherine Jaimes : 1995 F21 MedRec: [id number] AcctNum: [id number] Prepared: Caitie Nov 19, 2016 14:19 by Interface Page 11 of 12 pMD [facility] EMERGENCY RECORD %Lymphocytes 22.3 %, Range (21.0-51.0), %Monocytes 7.3 %, Range (0.0-10.0), %Eosinophils 0.8 %, Range (0.0-10.0), %Basophils 0.6 %, Range (0.0-1.0), *#Neutrophils 8.5 - H thou/uL, Range (1.40-6.50), #Lymphocytes 2.7 thou/uL, Range (1.20-3.40), *#Monocytes 0.9 - H thou/uL, Range (0.11-0.59), #Eosinphils 0.1 thou/uL, Range (0.0-0.7), #Basophils 0.1 thou/uL, Range (0.0-0.2). Griggs: CRISSY=VANESSA Parikh, Poppy LOPEZ=VANESSA Gross, Elif ALLEN=MD Nato, Kam &a-1R&a+25V*p+0X*i5618H*c202B*c15G*c2P*p-0X&a-25V&a+1R Name: Catherine Jaimes : 1995 F21 MedRec: [id number] AcctNum: [id number] Prepared: Caitie Nov 19, 2016 14:19 by Interface Page 12 of 12 pMD [facility] MEDICATION RECONCILIATION You were seen in the Emergency Department on: Caitie Nov 19, 2016 KNOWN ALLERGIES Bactrim DS: Reaction: Nausea Sulfa (Sulfonamide Antibiotics) MEDICATIONS GIVEN WHILE IN THE EMERGENCY DEPARTMENT Cipro tablet (ciprofloxacin HCl) - Dose: 500 milligram(s) : Oral HOME MEDICATIONS CONTINUE PRESCRIBED PRENATALS Continue as prescribed Notes from the emergency department Reviewed with family Reviewed with patient PRESCRIPTIONS (1) &a-1R&a+25V*p+0X*y1104T*c202B*c15G*c2P*p-0X&a-25V&a+1R Name: Catherine Jaimes : 1995 F21 MedRec: [id number] AcctNum: [id number] Prepared: Caitie Nov 19, 2016 14:19 by Interface [facility]MD [facility]
== END 2016-11-19 14:06 | disposition home or self-care (01) ==
LOC: MADERS 12:11
DX: O99.613 Diseases of the digestive system complicating pregnancy, third trimester (principal); K21.9 Gastro-esophageal reflux disease without esophagitis; O23.43 Unspecified infection of urinary tract in pregnancy, third trimester; O99.343 Other mental disorders complicating pregnancy, third trimester; F41.9 Anxiety disorder, unspecified; F32.9 Major depressive disorder, single episode, unspecified; O99.333 Smoking (tobacco) complicating pregnancy, third trimester; F17.220 Nicotine dependence, chewing tobacco, uncomplicated; Z3A.28 28 weeks gestation of pregnancy
CPT/HCPCS: 36415; 80053; 81001; 82550; 82553; 83880; 84484; 85025; 87086; 93005; 94760

== ENCOUNTER 2018-03-04 12:14 | Emergency (ER) | payer OTHER | END 2018-03-04 12:48 | disposition home or self-care (01) | LOC: MADERS 12:14 | DX: K59.00 Constipation, unspecified (principal); F41.9 Anxiety disorder, unspecified; F32.9 Major depressive disorder, single episode, unspecified; F17.220 Nicotine dependence, chewing tobacco, uncomplicated | CPT/HCPCS: 99283 ==

== ENCOUNTER 2019-05-09 11:14 | Emergency (ER) | payer OTHER, SELFPAY ==
[2019-05-09 11:50] LABS: Pregnancy Test - Urine (BHCG) Negative (Negative); Pregu Control Background? CLEAR/WHITE (CLR/WHITE); Pregu Control Bar Appear? YES (CONTROL BAR)
[2019-05-09 11:50] LABS: Bilirubin Negative (Negative); Blood, Urine Small (Negative); Clarity Clear (Clear); Glucose, Urine (Dipstick) Negative (Negative); Leukocyte Negative (Negative); Nitrite Negative (Negative); Protein, Urine (Dipstick) Negative (Neg-Trace); Urobilinogen 0.2 mg/dL (0.2-1.0)
[2019-05-09 11:57] LABS: Bacteria/HPF Rare-Few HPF (None Seen); RBC/HPF 0-3 HPF (0-3); Squamous Epithelial 0-3 HPF (0-3); WBC/HPF 0-3 HPF (0-3)
[2019-05-09 12:16] LABS: #Basophils 0.1 thou/uL (0.0-0.2); #Eosinphils 0.1 thou/uL (0.0-0.7); #Monocytes 0.6 thou/uL (0.11-0.59); #Neutrophils 5.8 thou/uL (1.40-6.50); %Basophils 0.8 % (0.0-1.0); %Eosinophils 1.1 % (0.0-10.0); %Lymphocytes 37.9 % (21.0-51.0); %Monocytes 5.6 % (0.0-10.0); %Neutrophils 54.6 % (42.0-75.0); Hemoglobin 12.5 g/dL (12.0-16.0); Mean Corpuscular HGB CONC 31.8 g/dL (32.0-36.0); Mean Corpuscular Hemoglobin 26.4 pg (27.0-31.0); Mean Corpuscular Volume 83.1 fL (78.0-98.0); Mean Platelet Volume 6.6 fL (7.4-10.4); Platelet Count 426 thou/uL (130-400); RBC Distribution Width 12.8 % (11.5-14.5); Red Blood Cell (RBC) Count 4.72 mill/uL (4.20-5.40); White Blood Cell (WBC) Count 10.6 thou/uL (4.8-10.8)
[2019-05-09 12:19] LABS: ALT (SGPT) 22 U/L (8-55); AST (SGOT) 17 U/L (5-34); Albumin 4.6 g/dL (3.5-5.0); Alkaline Phosphatase 129 U/L (40-150); Anion Gap 16 mmol/L (10-20); BUN (Urea Nitrogen) 10 mg/dL (7.0-18.7); Bilirubin, Total 0.3 mg/dL (0.2-1.2); Calc. Creatinine Clearance 0 mL/min (70-130); Calcium 9.5 mg/dL (7.8-10.44); Carbon Dioxide 21 mmol/L (22-29); Chloride 106 mmol/L (98-107); Estimated GFR-MDRD Greater than 90; Globulin 3.8 g/dL (2.4-3.5); Glucose 104 mg/dL (70-105); Lipase 11 U/L (8-78); Potassium 3.9 mmol/L (3.5-5.1); Protein, Total 8.4 g/dL (6.0-8.3); Sodium 139 mmol/L (136-145)
[2019-05-09] MEDS ORDERED: Ondansetron PF 4 MG/2 ML Vial ONE (12:55)
--- NOTE | 2019-05-09 14:11 | CT ---
CT abdomen and pelvis with oral and IV contrast: HISTORY: Right lower quadrant pain, nausea and vomiting FINDINGS: The lung bases are clear. No calcific gallstones are seen. The liver, spleen, pancreas, adrenal gland s and kidneys are normal. No free air is seen. There are a few enlarged lymph nodes in the ileocecal region. The small bowel loops are not abnormally dilated. A normal-appearing appendix is seen. A small hiatal hernia is present. Uterus and ovaries are present. There is small amount of free fluid in the right lower quadrant. Bila teral adnexal cysts are seen measuring 3.5 cm on the right and 4 cm in the left. IMPRESSION: 1. No evidence of appendicitis. 2. Bilateral adnexal cystic masses with free fluid in the right lower quadrant. 3. Mesenteric adenitis. 4. Small hiatal hernia
[2019-05-09] MEDS ORDERED: Ketorolac Tromethamine 30 MG/ML VIAL ONE (14:42)
[2019-05-11 16:44] LABS: Chlam.trachomatis by PCR,Urine Not Detected (NotDetected)
== END 2019-05-09 14:56 | disposition home or self-care (01) ==
LOC: MADERS 11:14
DX: N83.202 Unspecified ovarian cyst, left side (principal); N83.201 Unspecified ovarian cyst, right side; I88.0 Nonspecific mesenteric lymphadenitis; F17.210 Nicotine dependence, cigarettes, uncomplicated
CPT/HCPCS: 74177; 80053; 81003; 81015; 81025; 83605; 83690; 85025; 87491; 87591; 96374; 96375; J1885; J2405

== ENCOUNTER 2019-12-21 09:46 | Emergency (ER) | payer SELFPAY ==
[2019-12-21 10:35] LABS: Bilirubin Negative (Negative); Blood, Urine Negative (Negative); Clarity Clear (Clear); Glucose, Urine (Dipstick) Negative (Negative); Leukocyte Negative (Negative); Nitrite Negative (Negative); Protein, Urine (Dipstick) Negative (Neg-Trace); Urobilinogen 0.2 mg/dL (Less than 2)
[2019-12-21] MEDS ORDERED: Ibuprofen 800 MG TAB ONE (10:54)
[2019-12-21] MEDS ORDERED: Promethazine HCl 25 MG/ML VIAL ONE (10:54)
[2019-12-21] MEDS ORDERED: Ketorolac Tromethamine 60 MG/2 ML VIAL ONE (10:59)
[2019-12-21] MEDS ORDERED: Ondansetron ODT 4 MG TAB ONE (10:59)
== END 2019-12-21 11:23 | disposition home or self-care (01) ==
LOC: MADERS 09:46
DX: M54.5 Low back pain (principal); R10.819 Abdominal tenderness, unspecified site; R11.2 Nausea with vomiting, unspecified
CPT/HCPCS: 81003; 96372; 99283; J1885; J2550; Q0162

== ENCOUNTER 2020-02-03 15:30 | Emergency (ER) | payer SELFPAY ==
[~2020-02-03 15:30] MED LIST: Iopamidol 370 76% 100 ML VIAL ONE
[2020-02-03 17:02] LABS: Bilirubin Negative (Negative); Blood, Urine Trace (Negative); Glucose, Urine (Dipstick) Negative (Negative); Leukocyte Negative (Negative); Nitrite Negative (Negative); Protein, Urine (Dipstick) Negative (Neg-Trace)
[2020-02-03 17:03] LABS: Clarity Hazy (Clear)
[2020-02-03 17:04] LABS: Pregnancy Test - Urine (BHCG) Negative (Negative); Pregu Control Background? CLEAR/WHITE (CLR/WHITE); Pregu Control Bar Appear? YES (CONTROL BAR); Specific Gravity 1.025 (1.002-1.036)
[2020-02-03 17:21] LABS: Bacteria/HPF 1+ HPF (None Seen); RBC/HPF 0-3 HPF (0-3); WBC/HPF 0-3 HPF (0-3)
--- NOTE | 2020-02-03 19:27 | CT ---
CT ABDOMEN AND PELVIS WITH IV CONTRAST: 02/02/10 HISTORY: Abdominal pain. COMPARISON: 05/09/19. FINDINGS: Lung bases are clear. The liver, spleen, kidneys, adrenal glands and pancreas have a normal CT appear ance. Small hiatal hernia evident. Appendix is not inflamed. Fluid and stool throughout the colon. Nonenlarged, nonspecific lymph nodes throughout the mediastinum and retroperitoneum are similar in appearance to the prior study. Dominant follicle of the right ovary without a pathologic cyst apparent. No evidence of bowel obstruction. 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 IMPRESSION: No evidence of appendicitis or other acute abnormality. Mildly reactive mesenteric lymph nodes are stable compared to the prior exam. No new abnormalities. POS: [facility]
[2020-02-03] MEDS ORDERED: cefTRIAXone\\ROCEPHIN 250 MG VIAL ONE (19:56)
[2020-02-03] MEDS ORDERED: Lidocaine 1% 20 ML MDV ONE (19:56)
[2020-02-06 12:19] LABS: Chlamydia by PCR Not Detected (NotDetected); GC by PCR Not Detected (NotDetected)
== END 2020-02-03 20:27 | disposition home or self-care (01) ==
LOC: MADERS 15:30
DX: R10.9 Unspecified abdominal pain (principal); F41.9 Anxiety disorder, unspecified; F32.9 Major depressive disorder, single episode, unspecified; F17.210 Nicotine dependence, cigarettes, uncomplicated
CPT/HCPCS: 74177; 81003; 81015; 81025; 87480; 87491; 87510; 87591; 87660; 96372; J0696; J2001; Q9967

== ENCOUNTER 2020-07-10 18:37 | Emergency (ER) | payer SELFPAY ==
[2020-07-10] MEDS ORDERED: EPINEPHrine 1 MG/ML AMP ONE (18:54)
[2020-07-10] MEDS ORDERED: diphenhydrAMINE 50 MG/ML VIAL ONE (19:06)
[2020-07-10] MEDS ORDERED: Ondansetron PF 4 MG/2 ML Vial ONE (19:06)
[2020-07-10] MEDS ORDERED: methylPREDNISolone Sod Succ/PF 125 MG/2 ML VIAL ONE (19:06)
[2020-07-10] MEDS ORDERED: Clindamycin 150 MG CAP ONE (22:10)
== END 2020-07-10 23:15 | disposition home or self-care (01) ==
LOC: MADERS 18:37
DX: R06.02 Shortness of breath (principal); R21 Rash and other nonspecific skin eruption; T36.0X5A Adverse effect of penicillins, initial encounter; F41.9 Anxiety disorder, unspecified; F32.9 Major depressive disorder, single episode, unspecified; F17.210 Nicotine dependence, cigarettes, uncomplicated
CPT/HCPCS: 96372; 96374; 96375; J0171; J1200; J2405; J2930

== ENCOUNTER 2022-10-27 22:49 | Emergency (ER) | payer SELFPAY | END 2022-10-28 00:05 | disposition home or self-care (01) | LOC: MADERS 22:49 | DX: J11.1 Influenza due to unidentified influenza virus with other respiratory manifestations (principal); B34.9 Viral infection, unspecified; F17.210 Nicotine dependence, cigarettes, uncomplicated | CPT/HCPCS: 87081; 87430; 87804; 99283 ==

== ENCOUNTER 2022-10-30 22:31 | Emergency (ER) | payer SELFPAY ==
[2022-10-30 23:19] LABS: Pregu Control Background? CLEAR/WHITE (CLR/WHITE); Pregu Control Bar Appear? YES (CONTROL BAR); Specific Gravity 1.004 (1.002-1.036)
[2022-10-30 23:22] LABS: Pregnancy Test - Urine (BHCG) Negative (Negative)
== END 2022-10-31 00:03 | disposition home or self-care (01) ==
LOC: EEVIPCON 22:31 → MADERS 22:31
DX: J06.9 Acute upper respiratory infection, unspecified (principal); R94.31 Abnormal electrocardiogram [ECG] [EKG]; T50.905A Adverse effect of unspecified drugs, medicaments and biological substances, initial encounter; F17.210 Nicotine dependence, cigarettes, uncomplicated; Z20.822 Contact with and (suspected) exposure to COVID-19
CPT/HCPCS: 81025; 87081; 87430; 93005; 94760; U0003; U0005

== ENCOUNTER 2023-04-03 17:35 | Emergency (ER) | payer MEDICAID, SELFPAY ==
[2023-04-03 18:39] LABS: #Basophils 0.1 thou/uL (0.0-0.2); #Eosinphils 0.1 thou/uL (0.0-0.7); #Lymphocytes 2.8 thou/uL (1.20-3.40); #Monocytes 0.4 thou/uL (0.11-0.59); %Basophils 0.9 % (0.0-1.0); %Lymphocytes 33.9 % (21.0-51.0); %Monocytes 5.1 % (0.0-10.0); %Neutrophils 59.2 % (42.0-75.0); Hemoglobin 12.9 g/dL (12.0-16.0); Mean Corpuscular HGB CONC 32.4 g/dL (32.0-36.0); Mean Corpuscular Volume 89.4 fl (78.0-98.0); Mean Platelet Volume 7.5 fL (7.4-10.4); Platelet Count 424 10x3/uL (130-400); RBC Distribution Width 12.3 % (11.5-14.5); Red Blood Cell (RBC) Count 4.45 mill/uL (4.20-5.40); White Blood Cell (WBC) Count 8.4 10x3/uL (4.8-10.8)
[2023-04-03 18:54] LABS: ALT (SGPT) 31 U/L (8-55); AST (SGOT) 19 U/L (5-34); Acetaminophen Less than 10.0 mcg/mL (10.0-30.0); Albumin 4.2 g/dL (3.5-5.0); Alcohol Less than 10 mg/dL (Less than 10); Alkaline Phosphatase 91 U/L (40-110); Anion Gap 13 mmol/L (10-20); BUN (Urea Nitrogen) 7 mg/dL (7.0-18.7); Bilirubin, Total 0.5 mg/dL (0.2-1.2); Calc. Creatinine Clearance 0 mL/min (70-130); Carbon Dioxide 28 mmol/L (22-29); Chloride 102 mmol/L (98-107); Estimated GFR 121; Globulin 3.1 g/dL (2.4-3.5); Glucose 96 mg/dL (70-105); Protein, Total 7.3 g/dL (6.0-8.3); Salicylate Less than 8.0 mg/dL (15.0-30.0); Sodium 139 mmol/L (136-145)
[2023-04-03 19:37] LABS: Bilirubin Negative (Negative); Blood, Urine Trace (Negative); Clarity Slightly Cloudy (Clear); Glucose, Urine (Dipstick) Negative (Negative); Ketone, Urine Negative (Negative); Leukocyte Negative (Negative); Nitrite Negative (Negative); Protein, Urine (Dipstick) Negative (Neg-Trace); Urobilinogen 0.2 mg/dL (Less than 2)
[2023-04-03 19:44] LABS: Pregnancy Test - Urine (BHCG) Negative (Negative); Pregu Control Background? CLEAR/WHITE (CLR/WHITE); Pregu Control Bar Appear? YES (CONTROL BAR); Specific Gravity 1.025 (1.002-1.036)
[2023-04-03 19:46] LABS: Specific Gravity, Urine 1.025 (1.002-1.036)
[2023-04-03 19:47] LABS: Bacteria/HPF 1+ HPF (None Seen); CAUTI Indications for Culture Alt mental st,lethar; RBC/HPF 0-3 HPF (0-3); WBC/HPF 0-3 HPF (0-3)
[2023-04-03 19:48] LABS: Urine Culture Reflex No No
[2023-04-03 19:55] LABS: Amphetamine Not Detected (NotDetected); Barbiturates Screen Not Detected (NotDetected); Benzodiazepine Screen Detected (NotDetected); Cocaine Metabolite Screen Not Detected (NotDetected); Methadone Not Detected (NotDetected); Methamphetamine Not Detected (NotDetected); Opiate Screen Not Detected (NotDetected); Oxycodone Screen Not Detected (NotDetected); Phencyclidine (PCP) Not Detected (NotDetected); THC/Cannabinoid Screen Detected (NotDetected); Tricyclic Screen Not Detected (NotDetected)
== END 2023-04-04 11:38 ==
LOC: MADERS 17:35
DX: F10.10 Alcohol abuse, uncomplicated (principal); F32.A Depression, unspecified; F17.290 Nicotine dependence, other tobacco product, uncomplicated
CPT/HCPCS: 36415; 80053; 80306; 80307; 81001; 81025; 85025; 99285

== ENCOUNTER 2023-09-30 17:23 | Emergency (ER) | payer SELFPAY, MEDICAID ==
[2023-09-30] MEDS ORDERED: Clindamycin 150 MG CAP ONE (17:43)
== END 2023-09-30 17:56 | disposition home or self-care (01) ==
LOC: MADERS 17:23
DX: K04.7 Periapical abscess without sinus (principal); K02.9 Dental caries, unspecified; J06.9 Acute upper respiratory infection, unspecified; F17.290 Nicotine dependence, other tobacco product, uncomplicated
CPT/HCPCS: 99283

== ENCOUNTER 2024-08-04 17:39 | Emergency (ER) | payer SELFPAY ==
[2024-08-04] MEDS ORDERED: Bupivacaine PF 0.5% 30 ML VIAL ONE (18:17)
== END 2024-08-04 18:22 | disposition home or self-care (01) ==
LOC: MADERS 17:39
DX: K08.89 Other specified disorders of teeth and supporting structures (principal); K02.9 Dental caries, unspecified; F17.290 Nicotine dependence, other tobacco product, uncomplicated
CPT/HCPCS: 64400; 99282; J0665

== ENCOUNTER 2024-09-14 20:44 | Emergency (ER) | payer SELFPAY | END 2024-09-14 21:49 | disposition home or self-care (01) | LOC: MADERS 20:44 | DX: O20.0 Threatened abortion (principal); F17.290 Nicotine dependence, other tobacco product, uncomplicated; Z3A.01 Less than 8 weeks gestation of pregnancy | CPT/HCPCS: 36415; 84702; 86900; 86901; 99284 ==